=== PATIENT | male | born 1960 | race Caucasian/White ===

== ENCOUNTER 2018-10-28 13:19 | Emergency (ER) | payer SELFPAY ==
[2018-10-28] MEDS ORDERED: ERYTHROMYCIN OPHTH OINT 1 GM TUBE RIGHTEYE STA (16:03)
--- NOTE | 2018-10-28 16:07 | ED Physician Documentation ---
PD HPI OPHTHO - Stated complaint Stated Complaint: FOREIGN OBJECT IN EYE - Chief complaint Chief Complaint: Heent - History obtained from History obtained from: Patient - History of Present Illness Timing - details: Abrupt onset Location: Right Associated symptoms: FB sensation Contributing factors: FB Similar symptoms before: Has not had sx before - Additional information Additional information: The patient is a 58-year-old male who was using a saws all the cut lumbar that had nails and it went an object hit his right eye about 1 hour prior to arrival. He presents with foreign body sensation in his right eye. He reports slight blurring of his vision in the right eye. He denies headache, nausea or vomiting. He does not wear corrective lenses. Review of Systems Eyes: reports: Decreased vision, Irritation Nose: denies: Congestion GI: denies: Nausea, Vomiting Neurologic: denies: Headache PD PAST MEDICAL HISTORY - Past Medical History Past Medical History: No - Past Surgical History Past Surgical History: No - Present Medications Home Medications: Ambulatory Orders Medication Instructions Recorded Confirmed No Known Home Medications 10/28/18 10/28/18 - Allergies Allergies/Adverse Reactions: Allergies Allergy/AdvReac Type Severity Reaction Status Date / Time No Known Drug Allergies Allergy Verified 10/28/18 13:59 - Social History Does the pt smoke?: Yes Smoking Status: Current every day smoker Does the pt drink ETOH?: Yes Substance Use and Type: Marijuana - Immunizations Immunizations: TDAP >10years/unknown PD ED PE NORMAL - Vitals Vital signs reviewed: Yes (Hypertensive) - General General: Alert and oriented X 3, Well developed/nourished - HEENT HEENT: Atraumatic, PERRL, EOMI, Other (There is slight injection of the right conjunctiva. Pupils are equal round reactive to light, extraocular movements intact. Visual acuity is 20/40 in the right eye, 20/20 in the left. Fluorescein stain and slit lamp exam of the right eye reveals corneal abrasion directly over the pupil. There is no foreign body detected.) - Respiratory Respiratory: No respiratory distress - Derm Derm: No rash - Neuro Neuro: Alert and oriented X 3, No motor deficit, Normal speech PD ED PE EXPANDED - Eyes Eyes: Visual acuity - see nn (20/40 right eye; 20/20 left eye.), PERRL, Normal accommodation, EOMI, Right eye, Normal eyelids, Corneal abrasion, Fluorescein uptake. No: Conj/sclera FB, Corneal FB Results - Vitals Vitals: Oxygen O2 Source Room air PD MEDICAL DECISION MAKING - ED course Complexity details: re-evaluated patient, considered differential, d/w patient ED course: The patient's presentation is significant for corneal abrasion of the right eye. There is no foreign body detected on slit lamp examination. Treatment in the emergency department included administration of erythromycin ophthalmic ointment. I discussed with him the expected course of injury, symptomatic treatment, as well as potentially worrisome signs or symptoms that should prompt reevaluation. Departure - Departure Disposition: 01 Home, Self Care Clinical Impression: Corneal abrasion Qualifiers: Encounter type: initial encounter Laterality: right Qualified Code(s): S05.01XA - Injury of conjunctiva and corneal abrasion without foreign body, right eye, initial encounter Condition: Stable Instructions: ED Eye Injury Corneal Abrasion Comments: Apply erythromycin ophthalmic ointment to your right eye 4 times daily for the next 2 days. You can use ibuprofen, up to 800 mg 3 times daily if needed for discomfort. Follow-up with newspaper photojournalist, or return to the emergency department if you develop increasing pain in your eye, increasing blurriness of vision, or otherwise worsening symptoms. Discharge Date/Time: 10/28/18 16:15
[2018-10-28 16:16] VITALS: BP 178/97
== END 2018-10-28 16:15 | disposition home or self-care (01) ==
LOC: ED 13:19
DX: S05.01XA Injury of conjunctiva and corneal abrasion without foreign body, right eye, initial encounter (principal); X58.XXXA Exposure to other specified factors, initial encounter; Y93.89 Activity, other specified; F17.200 Nicotine dependence, unspecified, uncomplicated
CPT/HCPCS: 99281; 99282; J3490